=== PATIENT | female | born 1950 | race Native Hawaiian/Other Pacific Islander ===

== ENCOUNTER 2018-06-28 13:05 | Emergency (ER) | payer MEDICARE, OTHER ==
[2018-06-28 13:32] VITALS: RESP 18
--- NOTE | 2018-06-28 15:03 | RAD ---
Date of service: 06/28/2018 PROCEDURE: Right Knee Radiographs. HISTORY: pain and swelling COMPARISON: None. FINDINGS: No fracture or dislocation identified. There is narrowing of the patellofemoral joint space compartment. There is tricompartmental periarticular osteophyte formation. Superior patellar enthesophyte noted. There is no significant joint effusion. Vascular calcifications noted. IMPRESSION: Degenerative changes as above.
--- NOTE | 2018-06-28 15:23 | C.PDOC ---
History Of Present Illness 68 year old female presents to ED with complaint of right sided knee pain that is associated with swelling and difficulty walking. Patient states she did not did not injure herself and that she fell yesterday. Patient describes the pain as a 7/10 in severity, dull, throbbing, and constant. Patient has a PMHx of asthma, hypertension, and diabetes. Patient denies fever and chills. Time Seen by Provider: 06/28/18 13:23 Chief Complaint (Nursing): Lower Extremity Problem/Injury History Per: Patient History/Exam Limitations: no limitations Onset/Duration Of Symptoms: Days (1) Current Symptoms Are (Timing): Still Present Pain Scale Rating Of: 7 - Knee Description Of Injury: Fell Currently Unable To: Other (ambulate) Past Medical History Reviewed: Historical Data, Nursing Documentation, Vital Signs Vital Signs: Last Vital Signs Temp 98.4 F 06/28/18 13:22 Pulse 102 H 06/28/18 13:22 Resp 18 06/28/18 13:22 BP 180/90 H 06/28/18 13:22 Pulse Ox 100 06/28/18 13:22 - Medical History PMH: Asthma, Diabetes, HTN, Hypercholesterolemia Surgical History: No Surg Hx - [facility] Procedures OTHER LOCAL DESTRUC SKIN (01/06/13) Family History: States: Unknown Family Hx - Social History Hx Alcohol Use: No Hx Substance Use: No Review Of Systems Constitutional: Negative for: Fever, Chills, Weakness Respiratory: Negative for: Shortness of Breath Musculoskeletal: Positive for: Leg Pain (right knee) Skin: Negative for: Rash Neurological: Negative for: Weakness, Numbness, Dizziness Physical Exam - Physical Exam Appears: Well, Non-toxic, No Acute Distress Skin: Normal Color, Warm, Dry Head: Atraumatic, Normacephalic Neck: Normal ROM, Supple Chest: Symmetrical, No Deformity Respiratory: No Accessory Muscle Use Extremity: Tenderness (medial aspect of the right knee), Swelling (right knee, warm to touch) Neurological/Psych: Oriented x3, Normal Speech, Normal Cognition ED Course And Treatment O2 Sat by Pulse Oximetry: 100 (in RA) - Other Rad Right knee X-ray X-Ray: Interpreted by Me, Viewed By Me Interpretation: FINDINGS: No fracture or dislocation identified. There is narrowing of the patellofemoral joint space compartment. There is tricompartmental periarticular osteophyte formation. Superior patellar enthesophyte noted. There is no significant joint effusion. Vascular calcific ations noted. IMPRESSION: Degenerative changes as above. Medical Decision Making Medical Decision Making: Impression: 68 year old female with right knee pain Plan: Right knee X-ray ordered for patient. Patient given Motrin PO and Tylenol PO Patient was given an KIM wrap and told to follow up with pain management. Upon reassessment, patient is resting comfortably ,in no distress, and is stable for discharge. Discussed results and plan with patient who expresses understanding. All questions answered and there is agreement with the plan to discharge home with instructions. Return if symptoms persist or worsen. Disposition - Disposition Referrals: Nadira Neil MD [Staff Provider] - Robby Rodriguez MD [Staff Provider] - Disposition: HOME/ ROUTINE Disposition Time: 15:20 Condition: STABLE Additional Instructions: Follow up with pain management as indicated. Prescriptions: Naproxen [Naprosyn] 1 tab PO BID PRN #25 tab PRN Reason: Pain Instructions: Osteoarthritis (DC) Forms: [facility] ([place]), General Discharge Instructions - POA Present On Arrival: None - Clinical Impression Clinical Impression: Arthritis, Joint pain - Scribe Statement The provider has reviewed the documentation as recorded by the Scribe (Zonia Armijo) All medical record entries made by the Scribe were at my direction and personally dictated by me. I have reviewed the chart and agree that the record accurately reflects my personal performance of the history, physical exam, medical decision making, and the department course for this patient. I have also personally directed, reviewed, and agree with the discharge instructions and disposition.
[2018-06-28 15:30] VITALS: BP 162/79; PULSE 84; TEMP 98.5
[2018-06-28 16:13] VITALS: O2SAT 100
== END 2018-06-28 15:44 | disposition home or self-care (01) ==
LOC: C.ER 13:05
DX: M25.561 Pain in right knee (principal); M17.11 Unilateral primary osteoarthritis, right knee; E11.9 Type 2 diabetes mellitus without complications; I10 Essential (primary) hypertension; E78.00 Pure hypercholesterolemia, unspecified